=== PATIENT | male | born 1990 | race Caucasian/White ===

== ENCOUNTER 2020-11-05 11:34 | Emergency (ER) | payer OTHER, SELFPAY ==
[2020-11-05 11:58] VITALS: BP 129/70; PULSE 65; RESP 16; TEMP 37.2; O2SAT 99
--- NOTE | 2020-11-05 12:47 | ED.WOUNDLAC ---
HPI - Wound/Laceration General Chief Complaint: Wound/Laceration Stated Complaint: laceration on hand Source: patient Mode of arrival: ambulatory Limitations: no limitations History of Present Illness HPI narrative: Patient is a 30-year-old male who presents complaining of a laceration to palm of right hand. He reports cutting hand with metal shavings and sheet-metal. Bleeding controlled, dressing in place at this time. He denies numbness or tingling. He is able to move all fingers. He reports his tetanus shot is up-to-date. He denies any other complaints at this time. Related Data Home Medications Medication Instructions Recorded Confirmed No Home Medications 11/05/20 11/05/20 Allergies Allergy/AdvReac Type Severity Reaction Status Date / Time No Known Allergies Allergy Unverified 11/05/20 11:49 Review of Systems Review of Systems: Narrative: CONSTITUTIONAL: Denies fever, chills, or sweats. EYES: Denies visual changes, redness, or discharge. ENT: Denies rhinorrhea, congestion, sore throat, or otalgia. CARDIOVASCULAR: Denies chest pain, palpitations, or edema. RESPIRATORY: Denies cough or dyspnea. GASTROINTESTINAL: Denies abdominal pain, nausea, vomiting, or diarrhea. GENITOURINARY: Denies dysuria or hematuria. SKIN: Laceration to palmar right hand MUSCULOSKELETAL: Denies back pain, joint pain, or myalgia. NEUROLOGIC: Denies headache, numbness, dizziness, or weakness. PSYCHIATRIC: Denies anxiety or depression. PMFSH Past Medical History Medical History No significant past medical history Surgical History Surgical History No significant past surgical history Family History Family History (Updated 11/05/20 @ 12:52 by FELIZ Carter) Other No significant family history Comments At the time of signature, I have reviewed and agree with nursing past medical, surgical, social, and family history unless otherwise noted. Please see nursing chart for further information. There is no relevant family history pertinent to the presenting complaint. Exam Narrative: Exam Narrative: GENERAL: Well-appearing, well-nourished, and in no acute distress. HEAD: Normocephalic, atraumatic. EYES: EOMI. No redness or drainage. Conjunctiva are normal. ENT: Mucous membranes pink and moist. CHEST: No respiratory distress. HEART: Regular rate and rhythm. MUSCULOSKELETAL: No bony tenderness. EXTREMITIES: Normal range of motion. No edema. SKIN: Approximate 4 cm superficial laceration in the palmar fold of right hand, bleeding controlled NEURO: No focal deficits. Alert and oriented x3. Gait steady. PSYCH: Normal affect. No signs of depression or anxiety. Course Vital Signs Vital signs: Vital Signs Temperature 37.2 C 11/05/20 11:58 Pulse Rate 65 11/05/20 11:58 Respiratory Rate 16 11/05/20 11:58 Blood Pressure 129/70 11/05/20 11:58 Pulse Oximetry 99 11/05/20 11:58 Temperature 37.2 C 11/05/20 11:58 Pulse Rate 65 11/05/20 11:58 Respiratory Rate 16 11/05/20 11:58 Blood Pressure 129/70 11/05/20 11:58 Pulse Oximetry 99 11/05/20 11:58 Reviewed. Patient has been instructed to follow-up with his PCP regarding his blood pressure. Procedures Laceration Laceration 1: Date: 11/05/20 Time: 12:30 Site: hand Side (If applicable): right Size (cm): 4 Description: linear Depth: simple, single layer Local Anesthetic: none ====== Skin Level ====== Skin layer closed with: dermabond ====== Subcutaneous Layer ====== ====== Muscle Layer ====== ====== Tendon Layer ====== Dressing: Telfa and Coban applied MDM - Wound/Laceration MDM Narrative Medical decision making narrative: Patient has a superficial laceration to palm of right hand. Cleansed wound. Dermabond and dressing applied. P
== END 2020-11-05 12:36 | disposition home or self-care (01) ==
PROVIDERS: Emergency Provider Nurse Practitioner
DX: S61.411A Laceration without foreign body of right hand, initial encounter (principal); W26.8XXA Contact with other sharp object(s), not elsewhere classified, initial encounter
CPT/HCPCS: 12002; 99212; G0463